=== PATIENT | male | born 1980 | race Caucasian/White ===

== ENCOUNTER → 2025-01-20 | Outpatient (RCR) | payer OTHER | LOC: PT 09:34 | PROVIDERS: ATTEND Registered Nurse | DX: M54.50 Low back pain, unspecified (principal); G89.29 Other chronic pain ==

== ENCOUNTER 2025-02-14 09:52 | Outpatient (RCR) | payer OTHER | END 2025-02-19 | LOC: PT 09:52 | PROVIDERS: ATTEND Registered Nurse | DX: M54.50 Low back pain, unspecified (principal) ==